=== PATIENT | male | born 1965 | race Caucasian/White ===

== ENCOUNTER 2024-07-27 23:20 | Emergency (ER) | payer BC, OTHER, SELFPAY ==
[2024-07-27 23:21] VITALS: PULSE 86; RESP 20; O2SAT 98; BMI 36.8
--- NOTE | 2024-07-27 23:39 | EKG_ITS ---
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
--- NOTE | 2024-07-27 23:39 | XR_ITS ---
Examination: PA lateral chest 2 views TECHNIQUE: Upright PA lateral chest 2 views Exam date and time: July 28, 2024 0004 hours INDICATIONS: Onset chest pain today. FINDINGS: Normal heart size Minor subsegmental atelectasis left base No pneumonia or pulmonary edema IMPRESSION: No pneumonia or pulmonary edema
--- NOTE | 2024-07-27 23:40 | PD.EDRME ---
Rapid Medical Screening Exam RME Arrival date/time: 07/27/24 23:20 59 year old male present to Ed for c/o of chest pain I have greeted and performed a focused initial assessment of this patient. A comprehensive ED assessment and evaluation of the patient, analysis of all test results, and completion of the medical decision making process will be conducted by additional ED providers. Chief Complaint: Chest Pain Time Seen by Provider: 07/27/24 23:26
[2024-07-27 23:49] VITALS: BP 135/93; PULSE 78; RESP 18; TEMP 36.8; O2SAT 94
[2024-07-28 00:17] LABS: Basophils # (Auto) 0.1 Thou/mm3 (0.0-0.2); Basophils % (Auto) 1 % (0-2.5); Eosinophils # (Auto) 0.2 Thou/mm3 (0.0-0.5); Eosinophils % (Auto) 2 % (0-10); Hematocrit 47.1 % (41.0-53.0); Hemoglobin 15.6 g/dL (13.5-16.0); Immature Granulocytes % (Auto) 1 % (0-0); Immature Granulocytes Auto 0.07 Thou/mm3 (0.00-0.00); Lymphocytes # (Auto) 2.8 Thou/mm3 (1.0-4.8); Lymphocytes % (Auto) 28 % (10-50); Mean Corpuscular HGB Conc 33.1 g/dl (31.0-37.0); Mean Corpuscular Hemoglobin 28.5 pg (25.0-35.0); Mean Corpuscular Volume 86 fL (80-100); Monocytes # (Auto) 1.1 Thou/mm3 (0.0-0.8); Monocytes % (Auto) 11 % (0-12); Neutrophils # (Auto) 5.9 Thou/mm3 (1.8-7.7); Neutrophils % (Auto) 58 % (37-80); Nucleated Red Blood Cell % 0 /100 WBC (0); Platelet Count 557 Thou/mm3 (140-440); RDW Standard Deviation 42.3 fL (35.1-43.9); Red Blood Count 5.47 Miln/mm3 (4.50-5.90); White Blood Count 10.1 Thou/mm3 (3.8-10.6)
[2024-07-28] MEDS: ASPIRIN 81 MG CHEW 324 MG PO (00:24)
[2024-07-28 00:50] LABS: Alanine Aminotransferase 28 U/L (10-49); Albumin, Serum 4.7 gm/dL (3.4-4.8); Albumin/Globulin Ratio 2.1 (1.2-2.2); Alkaline Phosphatase 65 U/L (46-116); Anion Gap 8 (7-16); Aspartate Amino Transferase 18 U/L (0-34); BUN/Creatinine Ratio 18 Ratio (12-20); Bilirubin,Total 0.3 mg/dL (0.3-1.2); Blood Urea Nitrogen 18 mg/dL (9-23); Calcium 9.7 mg/dL (8.3-10.6); Calcium (Corrected) 9.7 mg/dL (8.5-10.1); Chloride 106 mMol/L (98-107); Estimated Creatinine Clearance 94.4 mL/min (>60); Globulin 2.2 gm/dL (2.3-3.5); Glucose 107 mg/dL (74-106); Lipase 30 U/L (12-53); Magnesium 2.2 mg/dL (1.6-2.6); Osmolality,Calculated 281 (275-295); Potassium 3.9 mMol/L (3.4-5.1); Sodium 140 mMol/L (136-145); Total Protein 6.9 gm/dL (5.7-8.2); Troponin I < 0.020 ng/mL (0.0-0.045); eGFR > 60 See Note
[2024-07-28 00:55] LABS: B-Type Natriuretic Peptide < 20 pg/mL (0-100)
[2024-07-28 05:10] VITALS: BP 162/83; PULSE 77; RESP 18; TEMP 36.6; O2SAT 95
[2024-07-28 05:41] LABS: Troponin I < 0.020 ng/mL (0.0-0.045)
--- NOTE | 2024-07-28 06:24 | EDNOTE_ITS ---
<Statement entered by Samantha Inman MD - 07/28/24 06:44> As co-signing physician, I was present and available for consult prn. I concur with the plan and care as documented by the midlevel provider. ED Chest Pain RME/HPI General Chief Complaint: Chest Pain Stated Complaint: chest pain,flushed 30minutes ago Time Seen by Provider: 07/27/24 23:26 Source: patient Arrival date/time: 07/27/24 23:20 59-year-old male with no known medical history presents to the emergency room with a chief complaint of 5 out of 10 sternal chest pain that has been going on for the last 30 minutes. Mode of arrival: ambulatory Limitations: no limitations RME / HPI RME / HPI narrative: 07/27/24 23:20 59 year old male present to Ed for c/o of chest pain I have greeted and performed a focused initial assessment of this patient. A comprehensive ED assessment and evaluation of the patient, analysis of all test results, and completion of the medical decision making process will be conducted by additional ED providers. Related Data Previous Rx's ?Medication ?Instructions ?Recorded ciprofloxacin HCl 500 mg tablet 500 mg PO BID #14 tabs 06/14/21 ondansetron 4 mg disintegrating 4 mg PO Q6H PRN nausea and 06/14/21 tablet vomiting #10 tabs tamsulosin 0.4 mg capsule 0.4 mg PO QDAY #7 caps 06/14/21 Allergies Allergy/AdvReac Type Severity Reaction Status Date / Time No Known Allergies Allergy Verified 06/14/21 05:45 Review of Systems Review of Systems Systems Reviewed: All systems reviewed, normal except as documented Constitutional Constitutional: Reports system reviewed and no additional complaints, except as documented, Denies fatigue, Denies fever(s), Denies headache(s) and Denies weakness Eyes Eyes: Reports system reviewed and no additional complaints, except as documented, Denies blurry vision and Denies change in vision ENT Ears, Nose, Mouth, and Throat: Reports system reviewed and no additional complaints, except as documented, Denies otalgia, Denies headache(s), Denies nasal congestion, Denies throat swelling and Denies vertigo Cardiovascular Cardiovascular: Reports system reviewed and no additional complaints, except as documented, Reports chest pain, Reports chest pain at rest, Reports chest pain with activity, Denies dyspnea and Denies dyspnea on exertion Respiratory Respiratory: Reports system reviewed and no additional complaints, except as documented, Denies chest congestion, Denies cough, Denies dyspnea, Denies dyspnea on exertion and Denies wheezing Gastrointestinal Gastrointestinal: Reports system reviewed and no additional complaints, except as documented, Denies abdominal pain, Denies cramping, Denies nausea and Denies vomiting Genitourinary Genitourinary: Reports system reviewed and no additional complaints, except as documented, Denies dysuria and Denies hematuria Musculoskeletal Musculoskeletal: Reports system reviewed and no additional complaints, except as documented and Denies back pain Integumentary/Breasts Skin/Breast: Reports system reviewed and no additional complaints, except as documented and Denies wounds Neurologic Neurologic: Reports system reviewed and no additional complaints, except as documented, Denies confusion, Denies headache(s), Denies lack of coordination, Denies vertigo and Denies weakness Psychiatric Psychiatric: Reports system reviewed and no additional complaints, except as documented, Denies anxiety, Denies confusion, Denies depression, Denies paranoia, Denies suicidal ideation and Denies tactile hallucinations Endocrine Endocrine: Reports system reviewed and no additional complaints, except as documented and Denies fatigue Hematologic/Lymphatic Hematologic/Lymphatic: Reports system reviewed and no additional complaints, except as documented and Denies lymphadenopathy Allergic/Immunologic Allergic/Immunologic: Reports system reviewed and no additional complaints, except as documented, Denies throat swelling, Denies urticaria and Denies wheezing Past Medical History Past Medical History CARDIAC: Negative Congestive Heart Failure RESPIRATORY: Negative Chronic Obstructive Pulmonary Disease (COPD) GENITOURINARY: Positive Kidney Stones ENDOCRINE: Negative Diabetes Mellitus Type 1 Social History SMOKING STATUS: Former smoker ED Exam General Limitations: Present no limitations General appearance: Present alert and in no apparent distress Head Head exam: Present atraumatic Eye Eye exam: Present normal appearance, PERRL and EOMI ENT ENT exam: Present normal exam, normal oropharynx and mucous membranes moist Neck Neck exam: Present normal inspection, full ROM and trachea midline Chest Chest inspection: Present normal inspection and symmetric chest wall rise Respiratory Respiratory exam: Present normal lung sounds bilaterally Cardiovascular Cardiovascular exam: Present regular rate, normal rhythm and normal heart sounds Abdominal Exam Abdominal exam: Present soft and normal bowel sounds Extremities Exam Extremities exam: Present normal inspection and full ROM Back Exam Back exam: Present normal inspection and full ROM Neurological Exam Neurological exam: Present alert, oriented X3 and CN II-XII intact Psychiatric Psychiatric exam: Present normal affect and normal mood Skin Skin exam: Present warm, dry, intact and normal color Course Quality Measures none Orders Category Date 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 Care 07/27/24 23:39 Active EKG (ED ONLY) *Do not use* NOW Care 07/27/24 23:39 Completed EKG (ED Only) Stat Exams 07/27/24 23:39 Draft XR chest 2V Stat Exams 07/27/24 23:39 Taken B-Type Natriuretic Peptide Stat Lab 07/27/24 00:00 Completed CBC Stat Lab 07/27/24 00:00 Completed Comprehensive Metabolic Panel Stat Lab 07/27/24 00:00 Completed Lipase Stat Lab 07/27/24 00:00 Completed Magnesium Stat Lab 07/27/24 00:00 Completed Troponin I Stat Lab 07/27/24 00:00 Completed Troponin I Stat Lab 07/28/24 05:05 Completed Aspirin Chew Med 07/27/24 23:58 Discontinued 324 mg PO X1 ONE Vital Signs Vital signs: Vital Signs Temperature 98.2 F 07/27/24 23:49 Pulse Rate 78 07/27/24 23:49 Respiratory Rate 18 07/27/24 23:49 Blood Pressure 135/93 H 07/27/24 23:49 Pulse Oximetry (%) 94 L 07/27/24 23:49 Oxygen Delivery Method Room Air 07/27/24 23:49 O2 saturation 94% within normal limits Procedures -ED EKG Interpretation #1: Date of EK07/28/24 Rate: 85 Interpretation: Reviewed by me EKG Impression: Normal sinus rhythm Additional EKG comment: EKG shows a normal sinus rhythm at [address] deviation Chest Pain MDM Narrative MDM Narrative:: 59-year-old male with no known medical history presents to the emergency room with a chief complaint of 5 out of 10 sternal chest pain that has been going on for the last 30 minutes. Clinically the patient appears nontoxic and in no apparent distress. Physical examination shows strong and regular pulses. During my examination 6 hours after patient first being seen by another provider the patient states he no longer has any chest pain and his chest pain has been gone for the last 4 hours. CBC and CMP were negative for any acute findings. Troponin was negative. Repeat troponin 3 hours later was negative. EKG shows normal sinus rhythm at 85 bpm. Patient is currently asymptomatic and states he would like to go home. Patient was discharged and educated to follow-up with his primary care provider and return to the emergency room for any evidence of worsening signs or symptoms Patient data External records reviewed:: [facility] previous records Clinical information provided by:: patient Social determinants that could affect healthcare access:: none Patient has the following chronic illnesses:: No chronic illness How is presenting disease/condition affected by chronic disease/condition?: no chronic disease Evaluation data The following diagnostics were reviewed and interpreted by me:: lab results and radiology exam(s) Lab and/or radiology exams considered but not ordered:: N/A Interpretation Summary: N/A Medications / Prescriptions Medications or Prescriptions considered but not ordered:: Medication given Medication administrations:: Medication Administration History Discontinued Medications Aspirin (Aspirin 81 Mg Chew) 324 mg PO X1 ONE Stop: 07/27/24 23:59 Last Admin: 07/28/24 00:24 Dose: 324 mg Documented By: Medication given Consultations Consultation(s) initiated? (list below): No Diagnosis Chest Pain Differential Diagnosis: stable angina, atypical chest pain, st elevation myocardial infarction and chest pain Most likely diagnosis given after review of the tests above:: Chest pain Admission Indicated Admission indicated?: not indicated Admission Request Was there a request for admission?: No Disposition Plan Disposition Plan: Discharge Discharge Attestation Discharge Attestation: The patient and all family members were given an opportunity to ask questions and understood the discharge instructions. Discharge instructions specifically effects, indications for sooner follow up or return to the emergency department, and the expected course of current diagnosis. Patient condition: Stable Discharge Plan Plan Patient Disposition: HOME (Self Care) Disposition Comment: stable Prescriptions/Referrals Prescriptions/Med Rec: No Action ciprofloxacin HCl 500 mg tablet 500 mg PO BID Qty: 14 0RF tamsulosin 0.4 mg capsule 0.4 mg PO QDAY Qty: 7 0RF ondansetron 4 mg tablet,disintegrating 4 mg PO Q6H PRN (Reason: nausea and vomiting) Qty: 10 0RF Referrals: Selene Mao MD [Primary Care Provider] - In 1 week Problem List Clinical Impression: Chest pain Patient/Caregiver Discharge Instructions Education Materials: ED Chest Pain, Noncardiac, ED Chest Pain, Uncertain Cause Additional Instructions: Please follow-up with your primary care provider in the next 24 to 48 hours. Your blood work was completed today and was negative for any acute cardiac problem. For any evidence of worsening signs or symptoms please return to the emergency room immediately. Print Language: Belgian Stand Alone Forms: Carley Award Info., Patient Portal Info Letter PA/OPERATIONS PLANNER Supervising Physician PA/MALKA Supervising Physician: Dr. Franco
== END 2024-07-28 06:27 | disposition home or self-care (01) ==
PROVIDERS: Physician Assistant; Emergency Provider Emergency Medicine; PCP Family Medicine
DX: R07.2 Precordial pain (principal); R94.31 Abnormal electrocardiogram [ECG] [EKG]
CPT/HCPCS: 36415; 71046; 80053; 83690; 83735; 83880; 84484; 85025; 93005; 99283; A9270